=== PATIENT | male | born 1935 | race Caucasian/White ===

== ENCOUNTER 2016-08-17 18:40 | Emergency (ER) | payer MEDICARE, OTHER ==
[2016-08-17 17:11] LABS: BASOPHILS 0.5 %; BASOPHILS ABSOLUTE 0.02 10/3/uL (0.0-0.16); EOSINOPHILS 2.1 %; EOSINOPHILS ABSOLUTE 0.09 10/3/uL (0.0-0.53); HEMOGLOBIN 13.5 g/dL (13.6-17.8); IMMATURE GRANULOCYTES 0.2 %; IMMATURE GRANULOCYTES ABSOLUTE 0.01 10/3/uL (0.0-0.11); LYMPHOCYTES 13.6 %; LYMPHOCYTES ABSOLUTE 0.59 10/3/uL (0.67-4.30); MEAN CORPUS HGB CONC 34.6 g/dL (32.0-36.0); MEAN CORPUSCULAR HEMOGLOB 32.1 pg (26.0-34.0); MEAN CORPUSCULAR VOLUME 92.6 fL (80-100); MEAN PLATELET VOLUME 9.2 fL (9.2-13.0); MONOCYTES 10.8 %; MONOCYTES ABSOLUTE 0.47 10/3/uL (0.21-1.20); NEUTROPHILS 72.8 %; NEUTROPHILS ABSOLUTE 3.16 10/3/uL (2.02-8.40); PLATELET COUNT 118 10/3/uL (150-400); RBC DISTRIBUTION WIDTH 14.4 % (12.0-16.0); RED CELL COUNT 4.21 10/6/uL (4.7-6.1); WHITE BLOOD CELLS 4.3 10/3/uL (4.5-10.5)
[2016-08-17 17:13] LABS: MANUAL DIFF NO %
[2016-08-17 17:20] LABS: INTERNATIONAL NORMAL RATI 1.1 UNITS (-); PARTIAL THROMBO TIME 35.1 SEC (22.5-37.2); PROTIME (NOT ORD) 14.1 SEC (12.0-14.5)
[2016-08-17 17:27] LABS: BUN (BLOOD UREA NITROGEN) 13 MG/DL (6-23); CALCIUM, SERUM 9.1 MG/DL (8.5-10.4); CHEST PAIN PROFILE TAT 0 Hrs 20 Mins; CHLORIDE, SERUM 105 MMOL/L (96-112); CO2 (CARBON DIOXIDE) 34 MMOL/L (24-34); CREATININE 1.13 MG/DL (0.70-1.30); GFR AFRICAN AMERICAN 70 ML/MIN (>=60); GFR NON AFRICAN AMERICAN 60 ML/MIN (>=60); GLUCOSE, SERUM 89 MG/DL (60-99); SODIUM, SERUM 141 MMOL/L (135-148); TROPONIN I <0.02 NG/ML (<0.05)
[~2016-08-17 18:40] MED LIST: ADVIL PO; ALLEGRA180 PO; ASAB PO; CARDCD180 PO; CELEXA20 PO; DSS PO; HYT5 PO; NITROSTAT0.4 MG SL; OCUVITE PO; PRILO PO; PROSCAR5 PO; REFRESH OPH; RITUXAN IV; TAMBOCOR PO; VITAMIN B-122500 MCG SL; X25 PO; X5 PO; [UNRECOGNIZED DRUG - REMARK]
== END 2016-08-17 21:05 | disposition home or self-care (01) ==
LOC: ER 18:40
PROVIDERS: Hospitalist
DX: R07.9 Chest pain, unspecified (principal); R06.09 Other forms of dyspnea; I25.10 Atherosclerotic heart disease of native coronary artery without angina pectoris; Z87.891 Personal history of nicotine dependence; Z88.1 Allergy status to other antibiotic agents; Z79.899 Other long term (current) drug therapy
CPT/HCPCS: 71020; 80048; 83735; 84484; 85025; 85610; 85730; 93005; 99285; A9270-GY

== ENCOUNTER 2016-09-02 08:25 | Inpatient (IN) | payer MEDICARE, OTHER ==
[2016-08-26 12:16] LABS: BASOPHILS 0.4 %; BASOPHILS ABSOLUTE 0.02 10/3/uL (0.0-0.16); EOSINOPHILS 1.7 %; EOSINOPHILS ABSOLUTE 0.08 10/3/uL (0.0-0.53); HEMATOCRIT 39.5 % (40.0-51.0); HEMOGLOBIN 13.6 g/dL (13.6-17.8); IMMATURE GRANULOCYTES 0.2 %; IMMATURE GRANULOCYTES ABSOLUTE 0.01 10/3/uL (0.0-0.11); LYMPHOCYTES ABSOLUTE 0.58 10/3/uL (0.67-4.30); MANUAL DIFF NO %; MEAN CORPUS HGB CONC 34.4 g/dL (32.0-36.0); MEAN CORPUSCULAR VOLUME 92.9 fL (80-100); MEAN PLATELET VOLUME 10.1 fL (9.2-13.0); MONOCYTES 8.7 %; MONOCYTES ABSOLUTE 0.42 10/3/uL (0.21-1.20); NEUTROPHILS ABSOLUTE 3.71 10/3/uL (2.02-8.40); PLATELET COUNT 119 10/3/uL (150-400); RBC DISTRIBUTION WIDTH 14.6 % (12.0-16.0); RED CELL COUNT 4.25 10/6/uL (4.7-6.1); WHITE BLOOD CELLS 4.8 10/3/uL (4.5-10.5)
[2016-08-26 12:22] LABS: INTERNATIONAL NORMAL RATI 1.1 UNITS (-); PROTIME (NOT ORD) 14.3 SEC (12.0-14.5)
[2016-08-26 12:35] LABS: % IRON SAT 34 % (20-50); A/G RATIO 1.6 (0.7-1.9); ALBUMIN 3.9 G/DL (3.5-5.0); ALKALINE PHOSPHATASE 82 U/L (45-117); BUN (BLOOD UREA NITROGEN) 12 MG/DL (6-23); CALCIUM, SERUM 8.9 MG/DL (8.5-10.4); CHLORIDE, SERUM 102 MMOL/L (96-112); CO2 (CARBON DIOXIDE) 35 MMOL/L (24-34); GFR AFRICAN AMERICAN 81 ML/MIN (>=60); GFR NON AFRICAN AMERICAN 70 ML/MIN (>=60); GLOBULIN 2.4 G/DL (2.5-4.1); GLUCOSE, SERUM 82 MG/DL (60-99); IRON BINDING CAPACITY 268 MCG/DL (250-450); IRON, SERUM 90 MCG/DL (35-150); SGOT(AST) 15 U/L (5-40); SGPT(ALT) 17 U/L (5-65); SODIUM, SERUM 136 MMOL/L (135-148); TOTAL BILIRUBIN 0.6 MG/DL (0-1.2); TOTAL PROTEIN 6.3 G/DL (6.0-8.5)
[2016-08-26 13:09] LABS: ASCORBIC ACID (UR NOT ORDER) 20 (NEG); BILIRUBIN, URINE NEGATIVE (NEG); KETONE, URINE NEGATIVE (NEG); LEUKOCYTE ESTERASE(NOT OR NEG (NEG); WBC (NOT ORDERED) (RFLEX) 1 (0-5)
--- NOTE | ~2016-09-02 | OP ---
Record Of Operation [facility] [address] [place]. [address] NAME: RASHAD ZHENG : 34 STATUS : ADM IN PAT#: [id number] AGE: 81 ADM/REG DATE : 09/02/16 MR#: [id number] REPORT SERV DATE: 09/03/16 DICTATED BY: RUSS JOVEL DATE: 09/02/16 REPORT STATUS : Draft TRANSCRIBED BY: MODL DATE: 09/02/16 DATE OF PROCEDURE: 09/02/2016 PREOPERATIVE DIAGNOSIS: 1. Aortic valve stenosis. 2. Coronary artery disease with angina. 3. History of follicular lymphoma. 4. Near syncope. 5. Hypertension. 6. BPH. 7. Possible history of dementia, early. PROCEDURE PERFORMED: 1. Aortic valve replacement using a 25 mm pericardial valve (Magna Ease). 2. Coronary artery bypass grafting x2, left internal mammary artery placed to left anterior descending, reverse saphenous vein graft placed to the distal right coronary artery. 3. Endoscopic vein harvest of saphenous vein from the right thigh. 4. Transesophageal echocardiography. SURGEON: Russ Jovel M.D. PHYSICIAN NON INVASIVE CARDIOLOGIST: Wendy Hernandez and Raul Hall. ANESTHESIA: General with Dr. Sevilla. WELLHEAD PUMPER: Javan Mendoza M.D. INDICATIONS: This is an 81-year-old gentleman who has a known history of aortic valve stenosis with progression of symptoms of fatigue, chest pain, and dyspnea. He was evaluated initially and referred to the [facility] where his evaluation continued. He was found to have significant aortic valve stenosis with a valve area of 0.7 cm2 and mean gradient across the valve of 51 mmHg. Cardiac catheterization demonstrated a significant prox mid LAD lesion at the takeoff of a large diagonal vessel. Right coronary was without severe disease. He was discussed at TVAR conference and after all his information was presented, it was felt the patient was not a good candidate for TVAR. It was felt that stenting the LAD would jeopardize this large diagonal, which was unappealing. In addition, the patient's takeoff of the right coronary artery was abnormally low, and there was concern about placing a TVAR-type prosthetic valve at the level of the annulus and occluding or obstructing takeoff of the right main coronary artery. This was shared with the and family, and after lengthy discussion of operation, its indications, and its risks, they wished to proceed. Predicted mortality was 2.3% morbidity, mortality was at least 14.9%. After lengthy discussion, they wished to proceed. FINDINGS AT OPERATION: 1. Cross-clamp of 130 minutes with pump time of 154 minutes. Record Of Operation [facility] [address] [place]. [address] NAME: RASHAD ZHENG : 34 STATUS : ADM IN PAT#: [id number] AGE: 81 ADM/REG DATE : 09/02/16 MR#: [id number] REPORT SERV DATE: 09/03/16 DICTATED BY: RUSS JOVEL DATE: 09/02/16 REPORT STATUS : Draft TRANSCRIBED BY: ANDER DATE: 09/02/16 2. The LAD was a 2 mm moderately diseased vessel. A 2 mm COBB was anastomosed to it with good runoff. 3. The distal RCA was 2.5 mm moderately diseased. A 4.5 mm RSVG was anastomosed to it with good runoff. 4. The vein quality was good and the grafts had good Doppler signal at the end of the case. 5. The aortic valve was a typical bicuspid valve with a fused right and left coronary cusps. There were 3 rudimentary commissural posts. The valve was very heavily calcified. The left coronary ostium was okay; however, the right coronary ostia was low and had an acute angulation takeoff from the side of the right coronary cusp near the commissural post between the right coronary and noncoronary cusps. 6. The aortic valve was replaced using a 25 mm pericardial valve with (Magna Ease). 17 Cor-Knots were used to secure the valve in place. 7. We made a small tear in the right coronary cusp just below the takeoff of the right coronary artery. This was occurred during the trying to engage the cardioplegia cannula into the right coronary artery. This was repaired at the time of the operation. We were concerned about right coronary obstruction with the repair. The bypass to the distal RCA was done because of this concern. 8. Transesophageal echocardiography at the end of the operation demonstrated good ventricular function. The aortic valve prosthesis was well seated without perivalvular leak. There was mild mitral insufficiency. PATHOLOGIC SPECIMENS: Include aortic valve leaflets. DESCRIPTION OF PROCEDURE: The patient was brought to the operating suite where general anesthesia was induced. The airway secured with an endotracheal tube. Lines secured by Anesthesia. Dye catheter was placed. The patient's chest, abdomen, groin, and legs were prepped with Hibiclens and ChloraPrep and draped with Ioban and sterile sheets. MARICRUZ probe was placed by Dr. Sevilla and examination carried out as discussed above. A midline sternal incision was made, and the sternum opened with a saw. The left hemithorax was elevated and the endothoracic fascia was incised. Side branch of the VEE were clipped and divided. Once the VEE was completely dissected, the patient was anticoagulated with heparin, and a chest tube placed in the left pleural cavity. The VEE was clipped and divided distally. There was good flow through the VEE and its pedicle was infiltrated with papaverine. Then, the Brendan retractor was placed in the pericardium from the innominate vein and diaphragm, where it was T'd and tacked to the side of the chest wall. Cannulation pursestring sutures were placed. Cannulation was carried out in routine manner. When all was in readiness, the patient was placed on cardiopulmonary bypass. The distal targets of the LAD were dissected and marked. Then, the aorta was crossclamped. Initial dose and only dose of cold crystalloid cardioplegia was given in an antegrade fashion both directly in the aorta root and directly in the coronary ostia after opening the aorta. An LV vent was placed the right superior pulmonary vein. After approximately the first liter of cardioplegia, we suspended administration of the solution and a hockey-stick type Record Of Operation [address] [id number] NAME: RASHAD ZHENG : 34 STATUS : ADM IN PAT#: [id number] AGE: 81 ADM/REG DATE : 09/02/16 MR#: [id number] REPORT SERV DATE: 09/03/16 DICTATED BY: RUSS JOVEL DATE: 09/02/16 REPORT STATUS : Draft TRANSCRIBED BY: MODL DATE: 09/02/16 aortotomy was made. We then used the coronary ostial cannulas to perfuse the left main coronary ostia. We attempted to cannulate the right main coronary ostia similarly; however, we had very significant difficulty in identifying the exact takeoff as it was abnormal and low. It was during this time, that we noted a small rent or tear in the right coronary sinus just below the takeoff of the right main coronary artery probably caused by the cardioplegic administration delivery device while we were trying to engage the right main button. We continued with cardioplegic administration for the 2 L of crystalloid long-term solution. Once this was completed, we inspected the takeoff of the right main coronary ostia. It was abnormally low and had an acute angle takeoff near the commissure post between the right and noncoronary cusps. I was worried that there would obstruction of the right coronary artery takeoff once repair was completed. Therefore, we decided to go ahead and harvest the portion of vein from the right thigh. A cut down was made on the right greater saphenous vein at the medial aspect right knee through a 2 cm incision. Then, using VasoView trocars, the vessel was dissected from the surrounding subcutaneous tissue and fat. The side branches were identified, ligated, and divided with cautery. Once adequate length of vein had been dissected, a counter incision made up in the thigh where the vein was ligated, divided, and brought through the knee incision. The vein quality was good. The leg wounds were made hemostatic and closed in layers with absorbable suture and skin closed with subcuticular fashion. During this time, the aortic valve leaflets were excised and the annulus debrided of all calcific material. We then irrigated the ascending aorta and left ventricle copiously with iced saline to remove any particulate matter. We placed our initial suture in the commissure between the right and non cusps. This was drawn toward cranially and this allowed us good exposure of the tear in the right coronary sinus near the right coronary artery takeoff. This was repaired with interrupted horizontal mattress sutures of 6-0 Prolene and then another layer of running suture of 6-0 Prolene over this. The repair looked adequate; however, there was a small ridge in the coronary sinus just deep to this takeoff of the right coronary os. Therefore, the bypass of the right coronary artery was planned. We continued then placing interrupted horizontal mattress sutures of pledgeted 2-0 Tycron circumferentially about the aortic valve annulus. The pledgets were on the ventricular side. The sutures were then passed through the sewing cuff of the valve, which was lowered into position. Each of these sutures were individually secured and divided using a Cor-Knot device. Once the valve was seated and the sutures divided, right and left main coronary ostia were inspected and were without obstruction. The area of repair of the right coronary sinus appeared to be intact. The hockey-stick type of the aortotomy incision was then closed in a two-layer fashion with running pledgeted suture of 5-0 Prolene. We then turned our attention towards the bypasses. The heart was first retracted to perform the distal RCA anastomosis. Arteriotomy was made in the distal RCA. The vein graft was trimmed and anastomosed it with 7-0 Prolene. The vein graft was measured back to the ascending aorta where it was divided and anastomosed to a 5 mm punch aortotomy with 6-0 Prolene. We then positioned the heart for the LAD graft. Warming was begun. Arteriotomy was made in the mid to distal LAD. The VEE was brought out to the left chest through a Record Of Operation [address] [id number] NAME: RASHAD ZHENG : 34 STATUS : ADM IN PAT#: [id number] AGE: 81 ADM/REG DATE : 09/02/16 MR#: [id number] REPORT SERV DATE: 09/03/16 DICTATED BY: RUSS JOVEL DATE: 09/02/16 REPORT STATUS : Draft TRANSCRIBED BY: ANDER DATE: 09/02/16 notch in the pericardium over the pulmonary artery. The VEE was opened and anastomosed to the LAD with running suture of 8-0 Prolene. The endothoracic fascia was tacked to the epicardium. The patient was placed in Trendelenburg and the left ventricle and ascending aorta were de- aired. Once this was accomplished, the aortic cross-clamp was removed and flows resumed on bypass. The heart was allowed to rest on cardiopulmonary bypass. The distal and proximal anastomoses and suture lines were inspected and made hemostatic. We inspected the area of the aortic root near the takeoff of the right coronary artery, and no hemorrhage or hematoma was observed. The heart did resume a slow rhythm and was paced atrially at a rate of 80. Ventilations were begun. When the heart demonstrated good contractility, it was allowed to fill and eject. De-airing was monitored with MARICRUZ. When deairing was completed, the LV vent was removed and each pursestring sutures tied and reinforced. The ascending aortic vent suture was likewise tied and then reinforced before Prolene pursestring. The patient was then weaned from cardiopulmonary bypass with minimal inotropic support. The venous cannulas were removed and these pursestring sutures were tied. MARICRUZ examination demonstrated a well-seated aortic valve prosthesis without perivalvular leak. There was mild mitral insufficiency as seen preoperatively. Protamine was then administered by Anesthesia and following a period of hemodynamic stability, the aortic cannula was removed and these pursestring sutures tied and reinforced. The patient continued to do well and chest irrigated copiously with saline. Meticulous hemostasis was obtained. Hemasorb was placed along the cut edge of the sternum. Once hemostasis was assured, the pericardium was draped over the anterior surface of heart and tacked in position. Doppler demonstrated good flow through the grafts following protamine administration. Then, chest tubes were placed and sternum reapproximated with 8 sternal wires. The clavipectoral fascia and linea alba were closed with #1 Stratafix. The subcutaneous tissue was closed and skin closed with subcuticular fashion. The patient tolerated the procedure well without any complications. Sponge and needle counts were correct. DISPOSITION: The patient left intubated, sedated, and transported to the Intensive Care in stable condition. TYRESE/ANDER Russ Jovel M.D. / [id number] Record Of Operation [address] [address] NAME: RASHAD ZHENG : 34 STATUS : ADM IN PAT#: [id number] AGE: 81 ADM/REG DATE : 09/02/16 MR#: [id number] REPORT SERV DATE: 09/03/16 DICTATED BY: RUSS JOVEL DATE: 09/02/16 REPORT STATUS : Draft TRANSCRIBED BY: ANDER DATE: 09/02/16 CC: Chloé Salinas Dr., M.D.
--- NOTE | ~2016-09-02 | HP ---
History And Physical [facility] [id number] [place]. [address] NAME: RASHAD ZHENG : 34 STATUS : DIS IN PAT#: [id number] AGE: 81 ADM/REG DATE : 09/02/16 MR#: [id number] REPORT SERV DATE: 10/28/16 DICTATED BY: RUSS JOVEL DATE: 10/28/16 REPORT STATUS : Draft TRANSCRIBED BY: MODL DATE: 10/28/16 DATE OF ADMISSION: 09/02/2016 CHIEF COMPLAINT: Dyspnea with minimal exertion and near syncope. HISTORY OF PRESENT ILLNESS: Mr. Zheng is an 81-year-old gentleman with known aortic valve stenosis that has significantly progressed. The patient reports worsening fatigue with exertion and is stable, and also he demonstrates stable and unstable symptoms of angina. His last echocardiogram demonstrated a valve area of 0.7 cm2 with a peak gradient of 89.9 mmHg and a mean gradient of 51. He did have a cardiac catheterization that confirmed presence of 70% stenosis of a mid LAD lesion. He has no recorded PA pressures that I can find. He was asked to see me for possible discussion for the TAVR procedure. He has a history of follicular lymphoma. The patient and the family state that he spends a lot of his time sleeping. He has significant fatigue and severe dyspnea with minimal exertion. He has had two syncopal episodes and several episodes of near syncope, and he and his claim that he looks very pale and weak. He denies orthopnea or paroxysmal nocturnal dyspnea. He admits to tightness of his left anterior chest wall that radiates from lateral to medial when it occurs. He has experienced it both with exertion and rest. Reportedly, he does not tolerate nitrates well. He does have a history of stroke and has had a recent MRI that did not show any evidence of a new CVA. He does have a history of memory problems and has decreased word recall, which may relate to his chemotherapy agent, rituximab. He does have a history of paroxysmal atrial fibrillation, but has been in normal sinus rhythm, his believes, for several years. He denies peripheral edema. PAST MEDICAL HISTORY: Significant for follicular lymphoma, treated with rituximab; aortic stenosis; coronary artery disease; paroxysmal atrial fibrillation. SOCIAL HISTORY: Significant for he was a former cigarette smoker and denies history of alcohol or illicit drug use. He does drink two cups of coffee per day. MEDICATION LIST: Includes: 1. Diane 180 mg as needed. 2. Alprazolam 0.5 mg one-half tablet as needed. 3. Aspirin 81 mg every other day. 4. Citalopram 20 mg daily. 5. Finasteride 5 mg daily. 6. Ibuprofen 200 mg every six hours as needed. 7. Nitroglycerin 0.4 sublingual tablet as needed for chest pain. 8. Ocuvite vitamin one tablet daily. 9. Prilosec 20 mg as needed. 10.Stool softener 100 mg daily. 11.Terazosin 5 mg once daily. 12.Vitamin B12 once daily. REVIEW OF SYSTEMS: CONSTITUTIONAL: Negative for weight gain, weight loss, or fever. History And Physical [address] [address] NAME: RASHAD ZHENG : 34 STATUS : DIS IN PAT#: [id number] AGE: 81 ADM/REG DATE : 09/02/16 MR#: [id number] REPORT SERV DATE: 10/28/16 DICTATED BY: RUSS JOVEL DATE: 10/28/16 REPORT STATUS : Draft TRANSCRIBED BY: ANDER DATE: 10/28/16 EYES: Negative for visual changes. ENT: Negative for hearing loss. RESPIRATORY: Rate is negative for snoring or hemoptysis, but positive for dyspnea. CARDIOLOGY: Negative for orthopnea or paroxysmal nocturnal dyspnea and is positive for chest pain, diaphoresis, and syncope. VASCULAR: Negative for claudication or edema. GI: Negative for nausea or bleeding and positive for reflux. : Negative for hematuria and positive for nocturia. ENDOCRINE: Negative for goiter or tremors. NEURO: Negative for depression. DERMATOLOGICAL: Negative for rash or skin sores. MUSCULOSKELETAL: Negative for myalgias and positive for joint pain. HEMATOLOGY: Negative for acute anemia or thrombocytopenia. PHYSICAL EXAMINATION: VITAL SIGNS: Include a heart rate of 68, blood pressure of 122/73, and he is 71 inches and weighs 198 pounds with a BMI of 27.2. CONSTITUTIONAL: There is no evidence of acute distress and he is well nourished, well developed. EYES: Demonstrate clear sclerae and normal conjunctivae bilaterally. His pupils are equal, round, and reactive to light. NOSE, MOUTH, AND THROAT: Demonstrate moist mucosa without any evidence of cyanosis or pallor. NECK: Has normal range of motion with no evidence of thyroid masses or jugular vein distention. RESPIRATORY: Rate is nonlabored. His breath sounds are clear throughout. CARDIAC: He has regular rhythm. S1 and S2 heart sounds and does have a 3/4 systolic ejection murmur heard at the right sternal border. VASCULAR: He does have positive bilateral carotid bruits. ABDOMEN: Soft, round, and nontender without any evidence of hepatomegaly or splenomegaly. SKIN: Warm and dry without any evidence of rashes or venous stasis ulcers. MUSCULOSKELETAL: His gait is normal, and he is able to exercise. EXTREMITIES: There is no evidence of lower extremity edema, clubbing, or cyanosis. NEUROLOGICAL: He is awake, alert and oriented to person, place, and time and has appropriate mood and affect. IMPRESSION: 1. Nonrheumatic aortic valve stenosis. 2. Atherosclerotic heart disease. 3. Follicular lymphoma. 4. Paroxysmal atrial fibrillation. PLAN: This is an 81-year-old white male with significant aortic valve stenosis with progressive fatigue and dyspnea upon exertion. He has a significant LAD lesion with stable and unstable angina-type symptoms. Dr. Jovel did discuss with the patient and the family today the possible need for surgical aortic valve replacement. He has the STS score with a mortality of 2.3% and morbidity of 14.9%. He understands reasoning given his history of History And Physical [address] [address] NAME: RASHAD ZHENG : 34 STATUS : DIS IN PAT#: [id number] AGE: 81 ADM/REG DATE : 09/02/16 MR#: [id number] REPORT SERV DATE: 10/28/16 DICTATED BY: RUSS JOVEL DATE: 10/28/16 REPORT STATUS : Draft TRANSCRIBED BY: ANDER DATE: 10/28/16 lymphoma. In addition, the patient does have some memory problems and aphasia, which may be significantly worsened, with general anesthesia and . Therefore, I believe the patient would be best served for consideration of a TAVR procedure. We will talk with the patient and the family regarding the possible TAVR. They understand the procedure and postoperative care. He understands that there is possible conversion to surgical aortic valve replacement should catastrophic complication during the procedure occur. In addition, they understand the possible need for pacemaker implantation in for vascular repair of the lower extremities. We discussed possible surgery with the patient and the family today and they understand the risks that include bleeding, infection, pneumonia, blood transfusion, liver and kidney damage, arrhythmia, need for pacemaker, heart attack, stroke, mediastinitis, DVT with pulmonary emboli, and among others and they wish to proceed. I am concerned about the patient's anginal symptoms, and this should be at the TAVR conference. The plan would be to present the patient at TAVR conference and to consider angioplasty of the left anterior descending artery. DICTATED BY: MICHELL Hobson/ANDER Russ Jovel M.D. / [id number] CC: Chloé Salinas Paul Daniel
[2016-09-02 20:24] LABS: BE (BASE EXCESS) -7.9 MEQ/L (0 +/- 2.5); CARBOXYHEMOGLOBIN 0.6 % (0-3); HCO3 (ACTUAL BICARBONATE) 17.9 MEQ/L (23-27); HEMOBLOGIN CONTENT 14.1 G/DL (14-18); INSTRUMENT SERIAL # 11843; METHEMOGLOBIN 0.7 % (0-3); MODE SIMV; O2 CONTENT 19.7 VOL% (18-24); OPERATOR ID 32193; PCO2 (CO2 TENSION) 37 MMHG (35-45); PO2 (O2 TENSION) 186 MMHG (79-93); SAMPLE Arterial; TIDAL VOLUME 700 ML
[2016-09-02 20:44] LABS: HEMATOCRIT 38.7 % (40.0-51.0); MEAN CORPUS HGB CONC 33.6 g/dL (32.0-36.0); MEAN CORPUSCULAR HEMOGLOB 31.3 pg (26.0-34.0); MEAN CORPUSCULAR VOLUME 93.3 fL (80-100); MEAN PLATELET VOLUME 9.9 fL (9.2-13.0); PLATELET COUNT 93 10/3/uL (150-400); RBC DISTRIBUTION WIDTH 14.7 % (12.0-16.0); RED CELL COUNT 4.15 10/6/uL (4.7-6.1)
[2016-09-02 20:45] LABS: MANUAL DIFF YES %; WHITE BLOOD CELLS 11.3 10/3/uL (4.5-10.5)
[2016-09-02 20:51] LABS: INTERNATIONAL NORMAL RATI 1.7 UNITS (-)
[2016-09-02 20:52] LABS: PARTIAL THROMBO TIME 83.6 SEC (22.5-37.2); PROTIME (NOT ORD) 20.2 SEC (12.0-14.5)
[2016-09-02 20:55] LABS: CHLORIDE, SERUM 105 MMOL/L (96-112); GFR AFRICAN AMERICAN 65 ML/MIN (>=60); GFR NON AFRICAN AMERICAN 56 ML/MIN (>=60); POTASSIUM, SERUM 4.4 MMOL/L (3.5-5.3); SODIUM, SERUM 134 MMOL/L (135-148)
[2016-09-02 20:57] LABS: BUN (BLOOD UREA NITROGEN) 16 MG/DL (6-23); CALCIUM, SERUM 7.8 MG/DL (8.5-10.4); CO2 (CARBON DIOXIDE) 19 MMOL/L (24-34); GLUCOSE, SERUM 132 MG/DL (60-99)
[2016-09-02 21:12] LABS: BAND NEUTROPHILS 13 %; EOSINOPHILS 1 %; EOSINOPHILS ABSOLUTE (CALC) 0.11 10/3/uL (0.0-0.53); LYMPHOCYTES 5 %; LYMPHOCYTES ABSOLUTE (CALC) 0.57 10/3/uL (0.67-4.30); MONOCYTES 5 %; MONOCYTES ABSOLUTE (CALC) 0.57 10/3/uL (0.21-1.20); NEUTROPHILS ABSOLUTE (CALC) 10.06 10/3/uL (2.02-8.40); PLATELET ESTIMATE DEC (ADEQUATE); SEGMENTED NEUTROPHIL (0) 76 %; TOTAL NUCLEATED CELLS 100
[2016-09-02 21:13] LABS: OVALOCYTES 1+ (3-10/OIF) (0-2/OIF)
[2016-09-03 00:32] LABS: BASOPHILS 0 %; EOSINOPHILS 0 %; IMMATURE GRANULOCYTES 0.4 %; IMMATURE GRANULOCYTES ABSOLUTE 0.03 10/3/uL (0.0-0.11); LYMPHOCYTES 2.7 %; MEAN CORPUS HGB CONC 34.7 g/dL (32.0-36.0); MEAN CORPUSCULAR HEMOGLOB 32.2 pg (26.0-34.0); MEAN CORPUSCULAR VOLUME 92.7 fL (80-100); MEAN PLATELET VOLUME 9.9 fL (9.2-13.0); MONOCYTES 7.8 %; MONOCYTES ABSOLUTE 0.58 10/3/uL (0.21-1.20); NEUTROPHILS 89.1 %; NEUTROPHILS ABSOLUTE 6.59 10/3/uL (2.02-8.40); PLATELET COUNT 80 10/3/uL (150-400); RBC DISTRIBUTION WIDTH 14.5 % (12.0-16.0); WHITE BLOOD CELLS 7.4 10/3/uL (4.5-10.5)
[2016-09-03 00:34] LABS: HEMATOCRIT 29.4 % (40.0-51.0); HEMOGLOBIN 10.2 g/dL (13.6-17.8); MANUAL DIFF NO %; RED CELL COUNT 3.17 10/6/uL (4.7-6.1)
[2016-09-03 00:40] LABS: INTERNATIONAL NORMAL RATI 1.5 UNITS (-); PROTIME (NOT ORD) 18.3 SEC (12.0-14.5)
[2016-09-03 00:59] LABS: CALCIUM, SERUM 8.1 MG/DL (8.5-10.4); CHLORIDE, SERUM 109 MMOL/L (96-112); CREATININE 1.02 MG/DL (0.70-1.30); GFR AFRICAN AMERICAN 79 ML/MIN (>=60); GFR NON AFRICAN AMERICAN 68 ML/MIN (>=60); POTASSIUM, SERUM 4.4 MMOL/L (3.5-5.3); SODIUM, SERUM 140 MMOL/L (135-148)
[2016-09-03 01:00] LABS: BUN (BLOOD UREA NITROGEN) 20 MG/DL (6-23); CO2 (CARBON DIOXIDE) 23 MMOL/L (24-34); GLUCOSE, SERUM 97 MG/DL (60-99)
[2016-09-03 03:56] LABS: BASOPHILS 0 %; EOSINOPHILS 0 %; HEMATOCRIT 28.8 % (40.0-51.0); HEMOGLOBIN 9.9 g/dL (13.6-17.8); IMMATURE GRANULOCYTES 0.4 %; IMMATURE GRANULOCYTES ABSOLUTE 0.03 10/3/uL (0.0-0.11); LYMPHOCYTES ABSOLUTE 0.24 10/3/uL (0.67-4.30); MANUAL DIFF NO %; MEAN CORPUS HGB CONC 34.4 g/dL (32.0-36.0); MEAN CORPUSCULAR HEMOGLOB 31.9 pg (26.0-34.0); MEAN CORPUSCULAR VOLUME 92.9 fL (80-100); MEAN PLATELET VOLUME 9.9 fL (9.2-13.0); MONOCYTES 5.8 %; MONOCYTES ABSOLUTE 0.46 10/3/uL (0.21-1.20); NEUTROPHILS 90.8 %; NEUTROPHILS ABSOLUTE 7.19 10/3/uL (2.02-8.40); PLATELET COUNT 85 10/3/uL (150-400); RBC DISTRIBUTION WIDTH 14.6 % (12.0-16.0); WHITE BLOOD CELLS 7.9 10/3/uL (4.5-10.5)
[2016-09-03 04:00] LABS: INTERNATIONAL NORMAL RATI 1.5 UNITS (-); PROTIME (NOT ORD) 17.6 SEC (12.0-14.5)
[2016-09-03 04:13] LABS: BUN (BLOOD UREA NITROGEN) 22 MG/DL (6-23); CALCIUM, SERUM 8.1 MG/DL (8.5-10.4); CHLORIDE, SERUM 110 MMOL/L (96-112); CO2 (CARBON DIOXIDE) 21 MMOL/L (24-34); CREATININE 1.04 MG/DL (0.70-1.30); GFR AFRICAN AMERICAN 77 ML/MIN (>=60); GFR NON AFRICAN AMERICAN 67 ML/MIN (>=60); GLUCOSE, SERUM 96 MG/DL (60-99); POTASSIUM, SERUM 4.5 MMOL/L (3.5-5.3); SODIUM, SERUM 138 MMOL/L (135-148)
[2016-09-03 06:14] LABS: CARBOXYHEMOGLOBIN 0.3 % (0-3); DEVICE NC; HCO3 (ACTUAL BICARBONATE) 19.8 MEQ/L (23-27); HEMOBLOGIN CONTENT 10.4 G/DL (14-18); INSTRUMENT SERIAL # 8083; METHEMOGLOBIN 0.2 % (0-3); O2 CONTENT 14.6 VOL% (18-24); OPERATOR ID 33449; PCO2 (CO2 TENSION) 31 MMHG (35-45); PO2 (O2 TENSION) 137 MMHG (79-93); SAMPLE Arterial; pH 7.42 (7.37-7.43)
[2016-09-03 08:26] LABS: HEMATOCRIT 27.8 % (40.0-51.0); HEMOGLOBIN 9.6 g/dL (13.6-17.8)
[2016-09-03 08:32] LABS: POTASSIUM, SERUM 4.2 MMOL/L (3.5-5.3)
[2016-09-03 15:06] LABS: HEMOGLOBIN 10.1 g/dL (13.6-17.8)
[2016-09-03 15:13] LABS: POTASSIUM, SERUM 3.7 MMOL/L (3.5-5.3)
[2016-09-04 04:21] LABS: BASOPHILS 0.1 %; BASOPHILS ABSOLUTE 0.01 10/3/uL (0.0-0.16); EOSINOPHILS 0 %; HEMATOCRIT 26.6 % (40.0-51.0); HEMOGLOBIN 9.1 g/dL (13.6-17.8); IMMATURE GRANULOCYTES 0.3 %; IMMATURE GRANULOCYTES ABSOLUTE 0.03 10/3/uL (0.0-0.11); LYMPHOCYTES 4.8 %; LYMPHOCYTES ABSOLUTE 0.41 10/3/uL (0.67-4.30); MEAN CORPUS HGB CONC 34.2 g/dL (32.0-36.0); MEAN CORPUSCULAR HEMOGLOB 31.9 pg (26.0-34.0); MEAN CORPUSCULAR VOLUME 93.3 fL (80-100); MEAN PLATELET VOLUME 10.5 fL (9.2-13.0); MONOCYTES 9.9 %; MONOCYTES ABSOLUTE 0.85 10/3/uL (0.21-1.20); NEUTROPHILS 84.9 %; NEUTROPHILS ABSOLUTE 7.32 10/3/uL (2.02-8.40); PLATELET COUNT 84 10/3/uL (150-400); RBC DISTRIBUTION WIDTH 15.1 % (12.0-16.0); RED CELL COUNT 2.85 10/6/uL (4.7-6.1); WHITE BLOOD CELLS 8.6 10/3/uL (4.5-10.5)
[2016-09-04 04:28] LABS: MANUAL DIFF NO %
[2016-09-04 04:31] LABS: CALCIUM, SERUM 7.7 MG/DL (8.5-10.4); CHLORIDE, SERUM 108 MMOL/L (96-112); CO2 (CARBON DIOXIDE) 24 MMOL/L (24-34); CREATININE 1.13 MG/DL (0.70-1.30); GFR AFRICAN AMERICAN 70 ML/MIN (>=60); GFR NON AFRICAN AMERICAN 60 ML/MIN (>=60); SODIUM, SERUM 138 MMOL/L (135-148)
[2016-09-04 04:33] LABS: BUN (BLOOD UREA NITROGEN) 37 MG/DL (6-23); GLUCOSE, SERUM 161 MG/DL (60-99); POTASSIUM, SERUM 4.6 MMOL/L (3.5-5.3)
[2016-09-05 07:04] LABS: BASOPHILS 0 %; EOSINOPHILS 0 %; HEMATOCRIT 26.5 % (40.0-51.0); HEMOGLOBIN 9.2 g/dL (13.6-17.8); IMMATURE GRANULOCYTES 0.2 %; IMMATURE GRANULOCYTES ABSOLUTE 0.01 10/3/uL (0.0-0.11); LYMPHOCYTES 6.7 %; LYMPHOCYTES ABSOLUTE 0.33 10/3/uL (0.67-4.30); MEAN CORPUS HGB CONC 34.7 g/dL (32.0-36.0); MEAN CORPUSCULAR HEMOGLOB 32.2 pg (26.0-34.0); MEAN CORPUSCULAR VOLUME 92.7 fL (80-100); MEAN PLATELET VOLUME 9.9 fL (9.2-13.0); MONOCYTES 9.9 %; MONOCYTES ABSOLUTE 0.49 10/3/uL (0.21-1.20); NEUTROPHILS 83.2 %; NEUTROPHILS ABSOLUTE 4.12 10/3/uL (2.02-8.40); PLATELET COUNT 68 10/3/uL (150-400); RED CELL COUNT 2.86 10/6/uL (4.7-6.1)
[2016-09-05 07:05] LABS: MANUAL DIFF NO %
[2016-09-05 07:11] LABS: INTERNATIONAL NORMAL RATI 1.3 UNITS (-); PROTIME (NOT ORD) 16.5 SEC (12.0-14.5)
[2016-09-05 07:18] LABS: CALCIUM, SERUM 7.6 MG/DL (8.5-10.4); CHLORIDE, SERUM 106 MMOL/L (96-112); CO2 (CARBON DIOXIDE) 25 MMOL/L (24-34); CREATININE 0.77 MG/DL (0.70-1.30); GFR AFRICAN AMERICAN 98 ML/MIN (>=60); GFR NON AFRICAN AMERICAN 85 ML/MIN (>=60); GLUCOSE, SERUM 152 MG/DL (60-99); POTASSIUM, SERUM 4.1 MMOL/L (3.5-5.3); SODIUM, SERUM 139 MMOL/L (135-148)
[2016-09-05 07:19] LABS: BUN (BLOOD UREA NITROGEN) 25 MG/DL (6-23)
[2016-09-05 07:29] LABS: PLATELET ESTIMATE DEC (ADEQUATE)
[2016-09-05 07:30] LABS: TEARDROP SHAPED RBCS OCC (0-2/OIF)
[2016-09-06 04:45] LABS: BASOPHILS 0.4 %; BASOPHILS ABSOLUTE 0.02 10/3/uL (0.0-0.16); EOSINOPHILS 0.4 %; EOSINOPHILS ABSOLUTE 0.02 10/3/uL (0.0-0.53); HEMATOCRIT 25.4 % (40.0-51.0); HEMOGLOBIN 8.9 g/dL (13.6-17.8); IMMATURE GRANULOCYTES 0.6 %; IMMATURE GRANULOCYTES ABSOLUTE 0.03 10/3/uL (0.0-0.11); LYMPHOCYTES 11.3 %; LYMPHOCYTES ABSOLUTE 0.55 10/3/uL (0.67-4.30); MEAN CORPUSCULAR HEMOGLOB 32.1 pg (26.0-34.0); MEAN CORPUSCULAR VOLUME 91.7 fL (80-100); MEAN PLATELET VOLUME 10.4 fL (9.2-13.0); MONOCYTES 7.4 %; MONOCYTES ABSOLUTE 0.36 10/3/uL (0.21-1.20); NEUTROPHILS 79.9 %; NEUTROPHILS ABSOLUTE 3.87 10/3/uL (2.02-8.40); PLATELET COUNT 71 10/3/uL (150-400); RBC DISTRIBUTION WIDTH 14.6 % (12.0-16.0); RED CELL COUNT 2.77 10/6/uL (4.7-6.1); WHITE BLOOD CELLS 4.9 10/3/uL (4.5-10.5)
[2016-09-06 04:46] LABS: MANUAL DIFF NO %
[2016-09-06 04:52] LABS: INTERNATIONAL NORMAL RATI 1.3 UNITS (-)
[2016-09-06 04:57] LABS: CALCIUM, SERUM 7.3 MG/DL (8.5-10.4); CHLORIDE, SERUM 105 MMOL/L (96-112); CO2 (CARBON DIOXIDE) 25 MMOL/L (24-34); CREATININE 0.73 MG/DL (0.70-1.30); GFR AFRICAN AMERICAN 100 ML/MIN (>=60); GFR NON AFRICAN AMERICAN 86 ML/MIN (>=60); GLUCOSE, SERUM 126 MG/DL (60-99); POTASSIUM, SERUM 3.7 MMOL/L (3.5-5.3); SODIUM, SERUM 137 MMOL/L (135-148)
[2016-09-06 04:58] LABS: BUN (BLOOD UREA NITROGEN) 17 MG/DL (6-23)
[2016-09-06 05:17] LABS: PLATELET ESTIMATE DEC (ADEQUATE); RBC MORPHOLOGY NORM (NORMAL)
[2016-09-07 07:16] LABS: BASOPHILS 0.2 %; BASOPHILS ABSOLUTE 0.01 10/3/uL (0.0-0.16); EOSINOPHILS 1.5 %; EOSINOPHILS ABSOLUTE 0.07 10/3/uL (0.0-0.53); HEMOGLOBIN 9.4 g/dL (13.6-17.8); IMMATURE GRANULOCYTES 1.1 %; IMMATURE GRANULOCYTES ABSOLUTE 0.05 10/3/uL (0.0-0.11); LYMPHOCYTES 10.6 %; LYMPHOCYTES ABSOLUTE 0.49 10/3/uL (0.67-4.30); MEAN CORPUS HGB CONC 34.8 g/dL (32.0-36.0); MEAN CORPUSCULAR VOLUME 91.8 fL (80-100); MEAN PLATELET VOLUME 9.8 fL (9.2-13.0); MONOCYTES 12.1 %; MONOCYTES ABSOLUTE 0.56 10/3/uL (0.21-1.20); NEUTROPHILS 74.5 %; NEUTROPHILS ABSOLUTE 3.45 10/3/uL (2.02-8.40); RBC DISTRIBUTION WIDTH 14.7 % (12.0-16.0); RED CELL COUNT 2.94 10/6/uL (4.7-6.1); WHITE BLOOD CELLS 4.6 10/3/uL (4.5-10.5)
[2016-09-07 07:18] LABS: MANUAL DIFF NO %; PLATELET COUNT 98 10/3/uL (150-400)
[2016-09-07 07:22] LABS: INTERNATIONAL NORMAL RATI 1.2 UNITS (-); PROTIME (NOT ORD) 15.5 SEC (12.0-14.5)
[2016-09-07 07:27] LABS: BUN (BLOOD UREA NITROGEN) 13 MG/DL (6-23); CALCIUM, SERUM 7.9 MG/DL (8.5-10.4); CHLORIDE, SERUM 104 MMOL/L (96-112); CO2 (CARBON DIOXIDE) 29 MMOL/L (24-34); CREATININE 0.87 MG/DL (0.70-1.30); GFR AFRICAN AMERICAN 93 ML/MIN (>=60); GFR NON AFRICAN AMERICAN 80 ML/MIN (>=60); GLUCOSE, SERUM 108 MG/DL (60-99); POTASSIUM, SERUM 3.6 MMOL/L (3.5-5.3); SODIUM, SERUM 137 MMOL/L (135-148)
[2016-09-08 05:36] LABS: BASOPHILS 0.2 %; BASOPHILS ABSOLUTE 0.01 10/3/uL (0.0-0.16); EOSINOPHILS 2.2 %; EOSINOPHILS ABSOLUTE 0.13 10/3/uL (0.0-0.53); HEMATOCRIT 29.7 % (40.0-51.0); HEMOGLOBIN 10.3 g/dL (13.6-17.8); IMMATURE GRANULOCYTES 1.4 %; IMMATURE GRANULOCYTES ABSOLUTE 0.08 10/3/uL (0.0-0.11); LYMPHOCYTES 10.3 %; MEAN CORPUS HGB CONC 34.7 g/dL (32.0-36.0); MEAN CORPUSCULAR HEMOGLOB 31.9 pg (26.0-34.0); MEAN PLATELET VOLUME 9.6 fL (9.2-13.0); MONOCYTES 10.8 %; MONOCYTES ABSOLUTE 0.63 10/3/uL (0.21-1.20); NEUTROPHILS 75.1 %; NEUTROPHILS ABSOLUTE 4.38 10/3/uL (2.02-8.40); RED CELL COUNT 3.23 10/6/uL (4.7-6.1); WHITE BLOOD CELLS 5.8 10/3/uL (4.5-10.5)
[2016-09-08 05:42] LABS: INTERNATIONAL NORMAL RATI 1.2 UNITS (-); PROTIME (NOT ORD) 15.3 SEC (12.0-14.5)
[2016-09-08 05:45] LABS: MANUAL DIFF NO %; PLATELET COUNT 129 10/3/uL (150-400)
[2016-09-08 05:57] LABS: BUN (BLOOD UREA NITROGEN) 12 MG/DL (6-23); CALCIUM, SERUM 8.3 MG/DL (8.5-10.4); CHLORIDE, SERUM 105 MMOL/L (96-112); CO2 (CARBON DIOXIDE) 26 MMOL/L (24-34); CREATININE 0.85 MG/DL (0.70-1.30); GFR AFRICAN AMERICAN 94 ML/MIN (>=60); GFR NON AFRICAN AMERICAN 81 ML/MIN (>=60); GLUCOSE, SERUM 102 MG/DL (60-99); POTASSIUM, SERUM 3.6 MMOL/L (3.5-5.3); SODIUM, SERUM 138 MMOL/L (135-148)
[2016-09-09 05:44] LABS: BASOPHILS 0.2 %; BASOPHILS ABSOLUTE 0.01 10/3/uL (0.0-0.16); EOSINOPHILS 2.6 %; EOSINOPHILS ABSOLUTE 0.16 10/3/uL (0.0-0.53); HEMATOCRIT 29.2 % (40.0-51.0); HEMOGLOBIN 10.2 g/dL (13.6-17.8); IMMATURE GRANULOCYTES ABSOLUTE 0.12 10/3/uL (0.0-0.11); INTERNATIONAL NORMAL RATI 1.4 UNITS (-); LYMPHOCYTES 10.8 %; LYMPHOCYTES ABSOLUTE 0.66 10/3/uL (0.67-4.30); MEAN CORPUS HGB CONC 34.9 g/dL (32.0-36.0); MEAN CORPUSCULAR HEMOGLOB 32.1 pg (26.0-34.0); MEAN CORPUSCULAR VOLUME 91.8 fL (80-100); MEAN PLATELET VOLUME 9.4 fL (9.2-13.0); MONOCYTES 9.5 %; MONOCYTES ABSOLUTE 0.58 10/3/uL (0.21-1.20); NEUTROPHILS 74.9 %; NEUTROPHILS ABSOLUTE 4.57 10/3/uL (2.02-8.40); PLATELET COUNT 135 10/3/uL (150-400); PROTIME (NOT ORD) 16.7 SEC (12.0-14.5); RBC DISTRIBUTION WIDTH 15.1 % (12.0-16.0); RED CELL COUNT 3.18 10/6/uL (4.7-6.1); WHITE BLOOD CELLS 6.1 10/3/uL (4.5-10.5)
[2016-09-09 05:49] LABS: MANUAL DIFF NO %
[2016-09-09 05:53] LABS: BUN (BLOOD UREA NITROGEN) 11 MG/DL (6-23); CALCIUM, SERUM 8.4 MG/DL (8.5-10.4); CHLORIDE, SERUM 105 MMOL/L (96-112); CO2 (CARBON DIOXIDE) 26 MMOL/L (24-34); CREATININE 0.82 MG/DL (0.70-1.30); GFR AFRICAN AMERICAN 95 ML/MIN (>=60); GFR NON AFRICAN AMERICAN 82 ML/MIN (>=60); GLUCOSE, SERUM 108 MG/DL (60-99); POTASSIUM, SERUM 3.7 MMOL/L (3.5-5.3); SODIUM, SERUM 137 MMOL/L (135-148)
[2016-09-10 05:55] LABS: BASOPHILS 0.2 %; BASOPHILS ABSOLUTE 0.01 10/3/uL (0.0-0.16); EOSINOPHILS 3.3 %; EOSINOPHILS ABSOLUTE 0.19 10/3/uL (0.0-0.53); HEMATOCRIT 28.1 % (40.0-51.0); HEMOGLOBIN 9.8 g/dL (13.6-17.8); IMMATURE GRANULOCYTES 1.5 %; IMMATURE GRANULOCYTES ABSOLUTE 0.09 10/3/uL (0.0-0.11); MANUAL DIFF NO %; MEAN CORPUS HGB CONC 34.9 g/dL (32.0-36.0); MEAN CORPUSCULAR HEMOGLOB 32.1 pg (26.0-34.0); MEAN CORPUSCULAR VOLUME 92.1 fL (80-100); MEAN PLATELET VOLUME 9.1 fL (9.2-13.0); MONOCYTES 9.1 %; MONOCYTES ABSOLUTE 0.53 10/3/uL (0.21-1.20); NEUTROPHILS 73.9 %; NEUTROPHILS ABSOLUTE 4.32 10/3/uL (2.02-8.40); PLATELET COUNT 148 10/3/uL (150-400); RBC DISTRIBUTION WIDTH 15.5 % (12.0-16.0); RED CELL COUNT 3.05 10/6/uL (4.7-6.1); WHITE BLOOD CELLS 5.8 10/3/uL (4.5-10.5)
[2016-09-10 05:57] LABS: INTERNATIONAL NORMAL RATI 1.6 UNITS (-); PROTIME (NOT ORD) 18.7 SEC (12.0-14.5)
[2016-09-10 06:04] LABS: BUN (BLOOD UREA NITROGEN) 12 MG/DL (6-23); CALCIUM, SERUM 8.2 MG/DL (8.5-10.4); CHLORIDE, SERUM 105 MMOL/L (96-112); CO2 (CARBON DIOXIDE) 27 MMOL/L (24-34); CREATININE 0.92 MG/DL (0.70-1.30); GFR AFRICAN AMERICAN 89 ML/MIN (>=60); GFR NON AFRICAN AMERICAN 77 ML/MIN (>=60); GLUCOSE, SERUM 111 MG/DL (60-99); POTASSIUM, SERUM 3.6 MMOL/L (3.5-5.3); SODIUM, SERUM 139 MMOL/L (135-148)
[2016-09-10] MEDS ORDERED: LIPITOR40 PO (15:10)
[2016-09-10] MEDS ORDERED: CORDARONE PO (15:11)
[2016-09-10] MEDS ORDERED: KLOR-CON M2020 MEQ PO (15:12)
[2016-09-10] MEDS ORDERED: L20 PO (15:12)
[2016-09-10] MEDS ORDERED: CARDCD120 PO (15:12)
[2016-09-10] MEDS ORDERED: LOP50 PO (15:12)
[2016-09-10] MEDS ORDERED: JANTOVEN4 MG PO (15:13)
[2016-09-10] MEDS ORDERED: NORCO1 TA1 PO (15:14)
== END 2016-09-10 17:00 | disposition home or self-care (01) | DRG 220 ==
LOC: SDC/OF 08:25 → CVICU 18:36 → 5NO 09-04 13:17
PROVIDERS: Internal Medicine Cardiovascular Disease; Nurse Practitioner Adult Health; Thoracic Surgery (Cardiothoracic Vascular Surgery)
PROC: 06BN4ZZ Excision of Left Femoral Vein, Percutaneous Endoscopic Approach (ICD-10-PCS; 2016-09-02)
PROC: 5A1221Z Performance of Cardiac Output, Continuous (ICD-10-PCS; 2016-09-02)
PROC: B246ZZ4 Ultrasonography of Right and Left Heart, Transesophageal (ICD-10-PCS; 2016-09-02)
PROC: 02RF08Z Replacement of Aortic Valve with Zooplastic Tissue, Open Approach (ICD-10-PCS; principal; 2016-09-02 13:30)
PROC: 0210099 Bypass Coronary Artery, One Artery from Left Internal Mammary with Autologous Venous Tissue, Open Approach (ICD-10-PCS; 2016-09-02 13:30)
PROC: 021009W Bypass Coronary Artery, One Artery from Aorta with Autologous Venous Tissue, Open Approach (ICD-10-PCS; 2016-09-02 13:30)
DX: I25.110 Atherosclerotic heart disease of native coronary artery with unstable angina pectoris (principal); J90 Pleural effusion, not elsewhere classified; F03.90 Unspecified dementia, unspecified severity, without behavioral disturbance, psychotic disturbance, mood disturbance, and anxiety; D69.6 Thrombocytopenia, unspecified; I97.89 Other postprocedural complications and disorders of the circulatory system, not elsewhere classified; I48.1 Persistent atrial fibrillation; I35.0 Nonrheumatic aortic (valve) stenosis; I10 Essential (primary) hypertension; N40.0 Benign prostatic hyperplasia without lower urinary tract symptoms; Z85.72 Personal history of non-Hodgkin lymphomas
CPT/HCPCS: 36415; 71010; 71020; 80048; 80053; 81001; 82330; 82803; 82805; 82947; 82962; 83036; 83540; 83550; 83735; 84132; 84295; 85014; 85018; 85025; 85347; 85610; 85730; 86850; 86900; 86901; 86920; 87641; 88305; 88311; 93005; 93312; 93320; 93325; 94002; 94640; 94660; 94770; A9270-GY; C1713; C1769; J0282; J0690; J1644; J1940; J2150; J2370; J2405; J2440; J2720; J2795; J2930; J3010; J3475; J3480; P9012; P9035; P9045; P9047; P9059